=== PATIENT | female | born 1965 | race Caucasian/White ===

== ENCOUNTER 2020-05-01 16:21 | Emergency (ER) | payer OTHER ==
[~2020-05-01] VITALS: Ht 160 cm; Wt 90.7 kg
[~2020-05-01 16:21] MED LIST: CELEBREX50 MG; LIPITOR20 MG PO
[2020-05-01] MEDS ORDERED: BACTRIM DS TAB1 EACH PO (17:03)
[2020-05-01 17:22] VITALS: BP 105/75
== END 2020-05-01 17:24 | disposition home or self-care (01) ==
LOC: M.ERS 16:21
DX: L08.9 Local infection of the skin and subcutaneous tissue, unspecified (principal); A49.02 Methicillin resistant Staphylococcus aureus infection, unspecified site; E78.5 Hyperlipidemia, unspecified; Z88.0 Allergy status to penicillin; Z88.5 Allergy status to narcotic agent; Z88.8 Allergy status to other drugs, medicaments and biological substances

== ENCOUNTER 2020-05-06 15:38 | Emergency (ER) | payer OTHER ==
[~2020-05-06] VITALS: Ht 175.3 cm; Wt 90.7 kg
[~2020-05-06 15:38] MED LIST changes: +BACTRIM DS TAB1 EACH PO
[2020-05-06 16:42] LABS: HEMATOCRIT 38.3 % (37.0-47.0); MCH 29.4 pg (26.0-34.0); MCHC 33.8 g/dL (28.0-37.0); MCV 87.1 fL (80.0-100.0); MPV 8.5 fl. (7.2-11.1); RBC 4.4 mil/uL (4.20-5.00); RDW-CV 13.5 % (10.5-14.5); WBC 5.9 thou/uL (4.0-11.0)
[2020-05-06] MEDS ORDERED: DOXYCYCLINE 10100 M2 PO (16:51)
[2020-05-06] MEDS ORDERED: ZOFRAN ODT4 MG DISSOLVE (16:51)
[2020-05-06 16:55] LABS: CALCIUM 8.6 mg/dL (8.5-10.1); POTASSIUM 3.7 mmol/L (3.5-5.1)
--- NOTE | 2020-05-06 17:04 | EKG ---
[place] [address] ELECTROCARDIOGRAM REPORT Name: JOSE MILLARD Room: 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
[2020-05-06 17:30] VITALS: BP 113/48
== END 2020-05-06 17:33 | disposition home or self-care (01) ==
LOC: M.ERS 15:38
PROVIDERS: Emergency Medicine Emergency Medical Services
DX: L08.9 Local infection of the skin and subcutaneous tissue, unspecified (principal); E78.5 Hyperlipidemia, unspecified; F41.9 Anxiety disorder, unspecified; Z88.0 Allergy status to penicillin; Z88.6 Allergy status to analgesic agent; Z88.8 Allergy status to other drugs, medicaments and biological substances

== ENCOUNTER 2021-02-23 12:30 | Emergency (ER) | payer MEDICARE ==
[~2021-02-23] VITALS: Ht 167.6 cm; Wt 81.7 kg
[~2021-02-23 12:30] MED LIST changes: +DOXYCYCLINE 10100 M2 PO; +ZOFRAN ODT4 MG DISSOLVE
[2021-02-23] MEDS ORDERED: FLEXERIL PO (12:49)
[2021-02-23] MEDS ORDERED: OMEPRAZOLE 20 M20 M1 PO (12:49)
[2021-02-23] MEDS ORDERED: ZOLOFT100 MG PO (12:49)
[2021-02-23 13:16] LABS: ABSOLUTE BASOPHILS 0.1 thou/uL (0.0-0.2); ABSOLUTE EOSINOPHILS 0.5 thou/uL (0.0-0.7); ABSOLUTE LYMPHOCYTES 1.6 thou/uL (0.8-5.3); ABSOLUTE MONOCYTES 0.8 thou/uL (0.0-1.2); ABSOLUTE NEUTROPHILS 4.4 thou/uL (1.6-8.1); BASOPHILS 0.8 %; HEMATOCRIT 33.7 % (37.0-47.0); HEMOGLOBIN 11.4 gm/dL (12.0-15.0); LYMPHOCYTES 21.8 %; MCH 29.8 pg (26.0-34.0); MCHC 33.7 g/dL (28.0-37.0); MCV 88.2 fL (80.0-100.0); MONOCYTES 10.7 %; MPV 8.4 fl. (7.2-11.1); NUCLEATED RBCS 0 /100WBC; PLATELET COUNT* 195 thou/uL (150-400); POLYS 59.7 %; RBC 3.82 mil/uL (4.20-5.00); RDW-CV 13.3 % (10.5-14.5); WBC 7.4 thou/uL (4.0-11.0)
[2021-02-23 13:23] LABS: CALCIUM 8.3 mg/dL (8.5-10.1); CREATININE 0.7 mg/dL (0.6-1.3); POTASSIUM 3.3 mmol/L (3.5-5.1)
[2021-02-23 13:34] LABS: ALBUMIN 3.2 g/dL (3.4-5.0); TOTAL BILIRUBIN 0.4 mg/dL (<0.1-1.0); TOTAL PROTEIN 6.7 g/dL (6.4-8.2)
[2021-02-23] MEDS ORDERED: DOXYCYCLINE 10100 M2 PO (14:14)
[2021-02-23] MEDS ORDERED: VENTOLIN HFA 1818 GM INH (14:14)
[2021-02-23 14:30] VITALS: BP 122/39
--- NOTE | 2021-02-25 11:57 | EKG ---
[place] [address] ELECTROCARDIOGRAM REPORT Name: FREEMANJOSE Dunn Room: 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1965 Requested By: Joni Amaya Order Number: [id number] MD: Wolfgang John Measurements Intervals [place] Rate: 62 P: 42 NV: 142 QRS: -7 QRSD: 154 T: 58 QT: 451 QTc: 458 Interpretive Statements Sinus rhythm Left bundle branch block Baseline wander in lead(s) V2 Compared to ECG 05/06/2020 16:33:12 No significant changes Electronically Signed On 02-25-2021 11:57:49 CDT by Wolfgang John [email or web address] <ELECTRONICALLY SIGNED> By: Wolfgang John MD, FACC 02/25/21 1157 1255 1255 Wolfgang John MD, [facility] /EPI
== END 2021-02-23 14:30 | disposition home or self-care (01) ==
LOC: M.ERS 12:30
PROVIDERS: Emergency Medicine Emergency Medical Services
DX: J18.9 Pneumonia, unspecified organism (principal); Z20.822 Contact with and (suspected) exposure to COVID-19; E78.5 Hyperlipidemia, unspecified; Z88.5 Allergy status to narcotic agent; Z88.0 Allergy status to penicillin; Z88.8 Allergy status to other drugs, medicaments and biological substances